=== PATIENT | female | born 1985 | race American Indian/Alaskan Native ===

== ENCOUNTER 2021-10-31 20:02 | Emergency (ER) | payer MEDICAID ==
[2021-10-31 21:11] VITALS: BP 130/88
--- NOTE | 2021-11-01 01:19 | Emergency Department Report ---
ED N/V/D HPI - General Chief complaint: Abdominal Pain Stated complaint: STOMACH VIRUS Source: patient Mode of arrival: Ambulatory Limitations: No Limitations - History of Present Illness Initial comments: Patient is a 36-year-old -[place] female with no past medical history who presents to the ED with complaint of acute onset persistent nausea and vomiting and intractable diarrhea with suprapubic pain for the last 3 days after eating at a seafood restaurant. Patient states that other people in her family have had similar symptoms after eating same food. Patient states that last time she had nausea and vomiting was 2 days ago and that she has had 2 episodes of diarrhea in the last 12 hours. Patient denies dizziness, syncope, abdominal pain, fever, chills, cough, sore throat, chest pain or shortness of breath, headache, lightheadedness, dysuria, urinary frequency and urgency, vaginal bleeding or vaginal discharge. MD complaint: nausea, vomiting, diarrhea, abdominal pain -: Sudden, days(s) (3) Description of Vomiting: food contents, watery, bilious Description of Diarrhea: water Associated Abdominal Pain: No Location: diffuse Radiation: none Severity: mild Pain Scale: 2 Quality: aching, dull Consistency: intermittent Improves with: none Worsens with: none Context: possible food poisoning, sick contacts Associated Symptoms: denies other symptoms, loss of appetite, malaise, nausea/vomiting. denies: myalgias, chest pain, cough, diaphoresis, fever/chills, rash, dysuria, shortness of breath, syncope, weakness - Related Data Previous Rx's Medication Instructions Recorded Last Taken Type Dicyclomine [Bentyl] 20 mg PO Q6H PRN #30 tablet 11/01/21 Unknown Rx Famotidine [Pepcid] 20 mg PO BID #60 tablet 11/01/21 Unknown Rx Ondansetron [Zofran Odt] 4 mg PO Q8HR PRN #20 tab.rapdis 11/01/21 Unknown Rx Allergies Allergy/AdvReac Type Severity Reaction Status Date / Time No Known Allergies Allergy Unverified 10/31/21 21:11 ED Review of Systems ROS: Stated complaint: STOMACH VIRUS Other details as noted in HPI Constitutional: denies: chills, fever Eyes: denies: eye pain, eye discharge, vision change ENT: denies: ear pain, throat pain Respiratory: denies: cough, shortness of breath, wheezing Cardiovascular: denies: chest pain, palpitations Endocrine: no symptoms reported Gastrointestinal: nausea, vomiting, diarrhea. denies: abdominal pain Genitourinary: denies: urgency, dysuria, discharge Musculoskeletal: denies: back pain, joint swelling, arthralgia Skin: denies: rash, lesions Neurological: denies: headache, weakness, paresthesias Psychiatric: denies: anxiety, depression Hematological/Lymphatic: denies: easy bleeding, easy bruising ED Past Medical Hx - Medications Home Medications: Home Medications Medication Instructions Recorded Confirmed Last Taken Type Dicyclomine [Bentyl] 20 mg PO Q6H PRN #30 tablet 11/01/21 Unknown Rx Famotidine [Pepcid] 20 mg PO BID #60 tablet 11/01/21 Unknown Rx Ondansetron [Zofran Odt] 4 mg PO Q8HR PRN #20 tab.rapdis 11/01/21 Unknown Rx ED Physical Exam - General Limitations: No Limitations General appearance: alert, in no apparent distress - Head Head exam: Present: atraumatic, normocephalic, normal inspection - Eye Eye exam: Present: normal appearance, PERRL, EOMI Pupils: Present: normal accommodation - ENT ENT exam: Present: normal exam, normal orophraynx, mucous membranes moist, TM's normal bilaterally, normal external ear exam - Neck Neck exam: Present: normal inspection, full ROM. Absent: tenderness - Respiratory Respiratory exam: Present: normal lung sounds bilaterally. Absent: respiratory distress, wheezes, rales, chest wall tenderness - Cardiovascular Cardiovascular Exam: Present: regular rate, normal rhythm, normal heart sounds. Absent: systolic murmur, diastolic murmur, rubs, gallop - GI/Abdominal GI/Abdominal exam: Present: soft, normal bowel sounds. Absent: tenderness, guarding, rebound, hyperactive bowel sounds, hypoactive bowel sounds, organomegaly, mass - Extremities Exam Extremities exam: Present: normal inspection, full ROM, normal capillary refill. Absent: tenderness - Back Exam Back exam: Present: normal inspection, full ROM. Absent: tenderness, CVA tenderness (R), CVA tenderness (L), muscle spasm, paraspinal tenderness, vertebral tenderness - Neurological Exam Neurological exam: Present: alert, oriented X3, CN II-XII intact, normal gait, reflexes normal - Psychiatric Psychiatric exam: Present: normal affect, normal mood - Skin Skin exam: Present: warm, dry, intact, normal color. Absent: rash ED Course Vital Signs 10/31/21 21:05 Temperature 98.4 F Pulse Rate 91 H Respiratory 17 Rate Blood Pressure 130/88 [Right] O2 Sat by Pulse 97 Oximetry ED Medical Decision Making - Medical Decision Making This is a 36-year-old -[place] female with no past medical history who presents to the ED with complaint of acute onset persistent nausea and vomiting and intractable diarrhea with suprapubic pain for the last 3 days after eating at a seafood restaurant. Patient states that other people in her family have had similar symptoms after eating same food. Patient states that last time she had nausea and vomiting was 2 days ago and that she has had 2 episodes of diarrhea in the last 12 hours. In the ED, patient is alert and oriented x3 and is not in any distress. Patient is hemodynamically stable. Patient has not had any nausea or vomiting in the last 2 days and has only had 2 episodes of diarrhea in the last 12 hours. Physical exam is unremarkable. Patient was discharged home on medications and advised to maintain a clear liquid diet for 12 to 24 hours, drink plenty of fluids, and follow-up with her primary care physician in 5 to 7 days for reevaluation. Patient is advised to return to the ED immediately if symptoms get worse - Differential Diagnosis Viral gastroenteritis; dehydration; GERD Critical care attestation.: If time is entered above; I have spent that time in minutes in the direct care of this critically ill patient, excluding procedure time. ED Disposition Clinical Impression: Viral gastroenteritis, Nausea, vomiting and diarrhea Disposition: HOME / SELF CARE / HOMELESS Is pt being admited?: No Does the pt Need Aspirin: No Condition: Stable Instructions: Abdominal Pain (ED), Viral Gastroenteritis, Adult, [id number], Diarrhea, Adult, [id number], Nausea and Vomiting, Adult, [id number] Additional Instructions: Maintain a clear liquid diet for 12 to 24 hours, drink plenty of fluids, follow- up with your primary care physician in 7 to 10 days for reevaluation. Return to the ED immediately if symptoms get worse. Prescriptions: Dicyclomine [Bentyl] 20 mg PO Q6H PRN #30 tablet PRN Reason: abdominal pain Famotidine [Pepcid] 20 mg PO BID #60 tablet Ondansetron [Zofran Odt] 4 mg PO Q8HR PRN #20 tab.rapdis PRN Reason: Nausea Forms: Work/School Release Form(ED) Time of Disposition: 01:20 Print Language: TURKMEN
== END 2021-11-01 01:46 | disposition home or self-care (01) ==
LOC: ED 20:02
DX: A08.4 Viral intestinal infection, unspecified (principal); R11.2 Nausea with vomiting, unspecified; R19.7 Diarrhea, unspecified
CPT/HCPCS: 99282

== ENCOUNTER 2021-11-08 04:16 | Emergency (ER) | payer MEDICAID ==
[2021-11-08 05:23] VITALS: BP 146/104
[2021-11-08 05:58] LABS: Bacteria,Urine 1+ /HPF (Negative); Mucus,Urine FEW /HPF
[2021-11-08 06:06] LABS: RBC,Urine > 182.0 /HPF (0.0-6.0)
[2021-11-08 06:09] LABS: Color,Urine Straw (Yellow)
[2021-11-08 06:10] LABS: Bilirubin,Urine Negative (Negative); Blood,Urine Large (Negative); Protein,Urine <30 mg dL mg/dL (Negative); Urobilinogen,Urine < 2.0 mg/dL (<2.0)
[2021-11-08 06:22] LABS: Basophils % (Auto) 0.7 % (0.0-1.8); Eosinophils # (Auto) 0.1 K/mm3 (0.0-0.4); Hematocrit 41.1 % (30.3-42.9); Hemoglobin 13.5 gm/dl (10.1-14.3); Lymphocytes # (Auto) 0.5 K/mm3 (1.2-5.4); Lymphocytes % (Auto) 8.1 % (13.4-35.0); Mean Corpuscular HGB Conc 33 % (30-34); Mean Corpuscular Volume 103 fl (79-97); Monocytes # (Auto) 0.8 K/mm3 (0.0-0.8); Monocytes % (Auto) 13.1 % (0.0-7.3); Platelet Count 269 K/mm3 (140-440); Red Blood Count 3.98 M/mm3 (3.65-5.03); Red Cell Distribution Width 12.5 % (13.2-15.2)
--- NOTE | 2021-11-09 10:59 | Electrocardiograph Report ---
[facility] Test Date: 2021-11-08 Test Time: 05:26:40 Pat Name: ANAY NAVARRO Department: Room: Gender: F [employer] Operator: DANIELLA : 1985 Requested By: ED DOC Order Number: [id number] Reading MD: Jaime Marie Measurements Intervals [place] Rate: 115 P: 35 CA: 126 QRS: 20 QRSD: 68 T: 2 QT: 303 QTc: 420 Interpretive Statements Sinus tachycardia No previous ECG available for comparison Electronically Signed On 11-09-2021 10:59:25 EDT by Jaime Marie
== END 2021-11-08 11:22 | disposition left against medical advice (07) ==
LOC: ED 04:16
DX: R10.9 Unspecified abdominal pain (principal); Z53.21 Procedure and treatment not carried out due to patient leaving prior to being seen by health care provider
CPT/HCPCS: 36415; 81001; 82140; 84703; 85025; 93005